=== PATIENT | male | born 1990 | race Caucasian/White ===

== ENCOUNTER 2023-06-28 17:41 | Emergency (ER) | payer OTHER ==
[2023-06-28 17:59] VITALS: BP 107/74; RESP 18; TEMP 98.2; BMI 26.6
[2023-06-28 19:54] LABS: VENOUS BASE EXCESS -0.7 mmol/L (-2-2); VENOUS O2 SATURATION 65.4 % (70-80); VENOUS PCO2 46.4 mmHg (38-52); VENOUS PH 7.354 (7.310-7.410)
[2023-06-28 20:14] LABS: EOS % 6.4 % (0-4.5); HEMATOCRIT 46.7 % (35.4-49); HEMOGLOBIN 15.9 GM/dL (11.7-16.9); LYMPH % 30.4 % (8-40); MCH 28.1 pg (25.7-33.7); MCHC 34.1 g/dl (32.0-35.9); MEAN CELL VOLUME 82.3 fl (80-96); MEAN PLT VOLUME 7.8 fl (7.5-11.1); MONO % 8.7 % (3.8-10.2); NEUT % 53.5 % (42.8-82.8); PLATELET COUNT 284 10^3/uL (134-434); RBC 5.67 M/mm3 (4.00-5.60); RDW 13.1 % (11.9-15.9); WHITE BLOOD COUNT 9.5 K/mm3 (4.0-10.0)
[2023-06-28 20:17] VITALS: PULSE 78
== END 2023-06-28 21:20 | disposition home or self-care (01) ==
LOC: JER 17:41
DX: R53.83 Other fatigue (principal); R42 Dizziness and giddiness; Z77.098 Contact with and (suspected) exposure to other hazardous, chiefly nonmedicinal, chemicals
CPT/HCPCS: 36415; 71046-TC-FY; 82375; 82803; 85025; 93005; 93010; 99285-25